=== PATIENT | female | born 1990 | race Caucasian/White ===

== ENCOUNTER → 2018-02-25 | Outpatient (CLI) | payer BC ==
--- NOTE | 2018-02-25 18:02 | EEG ---
ELECTROENCEPHALOGRAM REPORT DATE OF SERVICE: 02/25/2018. REASON FOR TESTING: Syncope. DESCRIPTION OF THE PROCEDURE: This EEG was performed using a 21 channel digital electroencephalograph, following international 10-20 system. DESCRIPTION OF THE RECORDING: From the beginning of the tracing, and with patient's eyes closed, the background rhythm was mostly consisting of 9 Hz alpha frequency in the posterior occipital leads. No obvious asymmetry is seen. Photic stimulation was performed with a good driving response seen. No pathological waves were elicited. Hyperventilation was not performed. Occasional muscle and movement artifacts are seen. The patient remains awake throughout the tracing. No epileptiform discharges were seen. Her EKG lead showed occasional arrhythmia. INTERPRETATION: This awake EEG can be considered within normal limits except her EKG lead showed a regular rate with an irregular rhythm. Clinical correlation is recommended regarding this finding. No epileptiform discharges were seen. The absence of epileptiform discharges does not rule out the diagnosis of epilepsy, therefore clinical correlation is recommended. Thank you for allowing me to participate in the care of your patient. If you have any questions, please feel free to contact me. MMMACKL / IJN: [id number] /
== END | disposition home or self-care (01) ==
LOC: NEUROMAIN 12:53
PROVIDERS: ATTEND Family Medicine
DX: I49.9 Cardiac arrhythmia, unspecified (principal)
CPT/HCPCS: 95816

== ENCOUNTER → 2018-07-13 | Outpatient (CLI) | payer BC | END | disposition home or self-care (01) | LOC: LABWHC1 16:03 | PROVIDERS: ATTEND Obstetrics & Gynecology | DX: Z34.90 Encounter for supervision of normal pregnancy, unspecified, unspecified trimester (principal) | CPT/HCPCS: 36415; 84702 ==

== ENCOUNTER → 2018-07-15 | Outpatient (CLI) | payer BC | END | disposition home or self-care (01) | LOC: LABWHC1 12:37 | PROVIDERS: ATTEND Obstetrics & Gynecology | DX: Z34.90 Encounter for supervision of normal pregnancy, unspecified, unspecified trimester (principal); Z3A.00 Weeks of gestation of pregnancy not specified | CPT/HCPCS: 36415; 84702 ==

== ENCOUNTER 2018-07-20 21:58 | Observation (INO) | payer BC ==
[2018-07-20] MEDS ORDERED: ACETAMINOPHEN TAB 325 MG TAB PO STA (22:22)
[2018-07-20] MEDS ORDERED: SODIUM CHLORIDE 0.9% 1,000 ML IV STA (22:22)
--- NOTE | 2018-07-20 22:23 | ED ---
Female Urogenital HPI - General Source: patient, RN notes reviewed Mode of arrival: ambulatory Limitations: no limitations <Maureen Cintron - Last Filed: 07/21/18 01:31> <Robyn Becerra - Last Filed: 07/21/18 03:26> - General Chief complaint: Urogenital Stated complaint: abdominal pain/8 wks preg Time Seen by Provider: 07/20/18 22:12 - History of Present Illness Initial comments: This is a 27-year-old female who presents to the emergency department with chief complaint of pelvic cramping and low back pain. Patient states that her [employer]ALENT S[employer]ER is Dr. Rose. She states that they have been trending her serum hcG levels as they are not rising appropriately. She states that her last ultrasound was 2 weeks ago and a gestational sac was identified, however no yolk sac was. Based on patient's last menstrual period, she believes she is 8 weeks . She states that this evening she developed low abdominal/ pelvic cramping and pain in her low back that she describes as feeling like contractions. She denies any fevers or chills, and chest pain or shortness of breath, nausea or vomiting, diarrhea. She denies vaginal bleeding or abnormal discharge. (Maureen Cintron) - Related Data Home Medications Medication Instructions Recorded Confirmed Gummy 2 tab PO DAILY 07/20/18 07/20/18 Allergies Allergy/AdvReac Type Severity Reaction Status Date / Time Penicillins Allergy Rash/Hives Verified 07/20/18 22:21 Review of Systems ROS Other: All systems not noted in ROS Statement are negative. <Maureen Cintron - Last Filed: 07/21/18 01:31> ROS Other: All systems not noted in ROS Statement are negative. <Robyn Becerra - Last Filed: 07/21/18 03:26> ROS Statement: Those systems with pertinent positive or pertinent negative responses have been documented in the HPI. Past Medical History Past Medical History: Asthma Additional Past Medical History / Comment(s): Heart arrythmia History of Any Multi-Drug Resistant Organisms: None Reported Past Surgical History: Section Additional Past Surgical History / Comment(s): Bilateral Myringotomy Past Anesthesia/Blood Transfusion Reactions: No Reported Reaction Past Psychological History: Anxiety Smoking Status: Never smoker Past Alcohol Use History: None Reported Past Drug Use History: None Reported - Past Family History Mother History Unknown: Yes Family Medical History: No Reported History <SaidaMaureen Carmen - Last Filed: 07/21/18 01:31> General Exam Limitations: no limitations <SaidaMaureen Carmen - Last Filed: 07/21/18 01:31> <Robyn Becerra - Last Filed: 07/21/18 03:26> - General Exam Comments Initial Comments: General: Awake and alert, well-developed; in mild distress due to pain. Patient is tearful. is at bedside. HEENT: Head atraumatic, normocephalic. Pupils are equal, round and reactive to light. Extraocular movements intact. Oropharynx moist without erythema or exudate. Neck: Supple. Normal ROM. Cardiovascular: Regular rate and rhythm. No murmurs, rubs or gallops. Chest symmetrical. Respiratory: Lungs clear to auscultation bilaterally. No wheezes, rales or rhonchi. Normal respiratory effort with no use of accessory muscles. Abdomen: Soft, non-distended. Generalized tenderness on palpation of hypogastric region. No rigidity or rebound. Voluntary guarding. Normal bowel sounds in all 4 quadrants. Musculoskeletal: Normal ROM, no tenderness bilateral upper and lower extremities. Ambulating normally. Skin: [place], warm and dry without rashes or lesions. Neurological: Alert and oriented x3. CN II-XII grossly intact. Speech is fluent and answers are appropriate. No focal neuro deficits. Psychiatric: Normal mood and affect. No overt signs of depression or anxiety noted. (Maureen Cintron) Vital Signs 07/20/18 07/21/18 07/21/18 22:08 00:10 00:50 Temperature 98.4 F 98.8 F 98.2 F Pulse Rate 91 69 Pulse Rate [ 61 Right Brachial] Respiratory 16 18 16 Rate Blood Pressure 117/76 119/69 Blood Pressure 99/57 [Right Arm] O2 Sat by Pulse 100 99 Oximetry 07/21/18 01:07 Temperature Pulse Rate 88 Pulse Rate [ Right Brachial] Respiratory 18 Rate Blood Pressure Blood Pressure [Right Arm] O2 Sat by Pulse 99 Oximetry Medical Decision Making - Lab Data Result diagrams: 07/20/18 22:50 07/20/18 22:50 - Radiology Data Radiology results: report reviewed <Maureen Cintron - Last Filed: 07/21/18 01:31> - Lab Data Result diagrams: 07/20/18 22:50 07/20/18 22:50 <Robyn Becerra - Last Filed: 07/21/18 03:26> - Medical Decision Making This is a 27-year-old female who presents to the emergency department with chief complaint of lower abdominal cramping. Patient reports that she is approximately 8 weeks based on last menstrual period. She has been following with Dr. Rose for repeat serum hCGs. Patient states that her hCG has not been increasing appropriately. An ultrasound was done a couple weeks ago and patient states that they saw gestational sac but no yolk sac. Patient developed lower abdominal cramping and back pain this evening. Denied any vaginal bleeding. She was concerned for miscarriage or ectopic . CBC and CMP revealed no significant abnormalities. Serum hCG was noted to be 15, 303.3. On review of previous serum hCGs there has not been a greater than 400 increase over the past 7 days. An ultrasound was obtained which revealed no intrauterine . The uterus was empty and a right adnexal mass measuring 3.2 x 3.9 x 2.7 was identified. Findings were discussed with attending physician, Dr. Becerra who was in contact with on-call [employer] S[employer]ER, Dr. Simmons. Patient will be admitted for observation to Dr. Rose. Morning labs of CBC and repeat beta hCG are ordered. Patient's vital signs have been stable and she is in no acute distress. She is in agreement for admission. (Maureen Cintron) Review the patient's chart and discussed patient care with OB on-call Dr. Simmons. She was able to review the patient's outpatient chart from the OB office and recommended admission for repeat CBC and beta hCG and possibility of exploratory laparoscopy for treatment of ectopic . Admission orders placed. (Robyn Becerra) - Lab Data Lab Results 07/20/18 07/20/18 07/20/18 Range/Units 22:45 22:50 22:50 WBC 11.3 H (3.8-10.6) k/uL RBC 4.15 (3.80-5.40) m/uL Hgb 12.6 (11.4-16.0) gm/dL Hct 36.4 (34.0-46.0) % MCV 87.7 (80.0-100.0) fL MCH 30.3 (25.0-35.0) pg MCHC 34.6 (31.0-37.0) g/dL RDW 11.8 (11.5-15.5) % Plt Count 363 (150-450) k/uL Neutrophils % 85 % Lymphocytes % 10 % Monocytes % 4 % Eosinophils % 1 % Basophils % 0 % Neutrophils # 9.6 H (1.3-7.7) k/uL Lymphocytes # 1.1 (1.0-4.8) k/uL Monocytes # 0.4 (0-1.0) k/uL Eosinophils # 0.1 (0-0.7) k/uL Basophils # 0.0 (0-0.2) k/uL Sodium 137 (137-145) mmol/L Potassium 4.3 (3.5-5.1) mmol/L Chloride 104 (98-107) mmol/L Carbon Dioxide 26 (22-30) mmol/L Anion Gap 7 mmol/L BUN 14 (7-17) mg/dL Creatinine 0.54 (0.52-1.04) mg/dL Est GFR (CKD-EPI)AfAm >90 (>60 ml/min/1.73 sqM) Est GFR (CKD-EPI)NonAf >90 (>60 ml/min/1.73 sqM) Glucose 117 H (74-99) mg/dL Calcium 9.6 (8.4-10.2) mg/dL Total Bilirubin 0.2 (0.2-1.3) mg/dL AST 17 (14-36) U/L ALT 18 (9-52) U/L Alkaline Phosphatase 53 (38-126) U/L Total Protein 7.3 (6.3-8.2) g/dL Albumin 4.2 (3.5-5.0) g/dL HCG, Quant 57197.3 mIU/mL Urine Color Yellow Urine Appearance Cloudy H (Clear) Urine pH 5.5 (5.0-8.0) Ur Specific [place] 1.022 (1.001-1.035) Urine Protein Negative (Negative) Urine Glucose (UA) Negative (Negative) Urine Ketones Negative (Negative) Urine Blood Small H (Negative) Urine Nitrite Negative (Negative) Urine Bilirubin Negative (Negative) Urine Urobilinogen <2.0 (<2.0) mg/dL Ur Leukocyte Esterase Negative (Negative) Urine RBC 2 (0-5) /hpf Urine WBC 1 (0-5) /hpf Ur Squamous Epith Cells <1 (0-4) /hpf Calcium Oxalate Crystal Many H (None) /hpf Urine Mucus Few H (None) /hpf - Radiology Data Obstetrical ultrasound impression: Uterus is empty. There is right adnexal mass that measures 3.2 x 3.9 x 3 cm suspicious for ectopic . Small amount of free fluid in the cul-de-sac. Read by Dr. Gonzalez. (Maureen Cintron) Disposition Is patient prescribed a controlled substance at d/c from ED?: No Time of Disposition: 00:30 <Maureen Cintron - Last Filed: 07/21/18 01:31> <Robyn Becerra - Last Filed: 07/21/18 03:26> Clinical Impression: Encounter for assessment for suspected ectopic Disposition: ADMITTED IP TO THIS HOSP Condition: Good
[2018-07-20 23:07] LABS: Basophils % (A) 0 %; Eosinophils # (A) 0.1 k/uL (0-0.7); Eosinophils % (A) 1 %; HCT 36.4 % (34.0-46.0); HGB 12.6 gm/dL (11.4-16.0); Lymphocytes # (A) 1.1 k/uL (1.0-4.8); Lymphocytes % (A) 10 %; MCH 30.3 pg (25.0-35.0); MCHC 34.6 g/dL (31.0-37.0); MCV 87.7 fL (80.0-100.0); Mean Platelet Volume 6.6; Monocytes # (A) 0.4 k/uL (0-1.0); Monocytes % (A) 4 %; Neutrophils # (A) 9.6 k/uL (1.3-7.7); Neutrophils % (A) 85 %; Platelet Count 363 k/uL (150-450); RBC 4.15 m/uL (3.80-5.40); RDW 11.8 % (11.5-15.5); WBC 11.3 k/uL (3.8-10.6)
[2018-07-20 23:12] LABS: Appearance,Urine Cloudy (Clear); Bilirubin,Urine Negative (Negative); Blood,Urine Small (Negative); Calcium Oxalate Crystals,Urine Many /hpf; Color,Urine Yellow; Glucose,Urine (UA) Negative (Negative); Ketones,Urine Negative (Negative); Leukocyte Esterase,Urine Negative (Negative); Mucus,Urine Few /hpf; Nitrite,Urine Negative (Negative); PH, Urine 5.5 (5.0-8.0); Protein,Urine Negative (Negative); RBC,Urine 2 /hpf (0-5); Specific Gravity,Urine 1.022 (1.001-1.035); Squamous Epithelial Cell,Urine <1 /hpf (0-4); Urobilinogen,Urine <2.0 mg/dL (<2.0); WBC,Urine 1 /hpf (0-5)
[2018-07-20 23:16] LABS: ALT 18 U/L (9-52); AST 17 U/L (14-36); Albumin 4.2 g/dL (3.5-5.0); Alkaline Phosphatase 53 U/L (38-126); Anion Gap 7 mmol/L; Blood Urea Nitrogen 14 mg/dL (7-17); Calcium 9.6 mg/dL (8.4-10.2); Carbon Dioxide 26 mmol/L (22-30); Chloride 104 mmol/L (98-107); Glucose 117 mg/dL (74-99); Potassium 4.3 mmol/L (3.5-5.1); Sodium 137 mmol/L (137-145); Total Bilirubin 0.2 mg/dL (0.2-1.3); Total Protein 7.3 g/dL (6.3-8.2)
--- NOTE | 2018-07-20 23:56 | US ---
EXAMINATION TYPE: Transabdominal DATE OF EXAM: 01/13/18 COMPARISON: NONE CLINICAL HISTORY: + preg; cramping. Pain EXAM PERFORMED: Transvaginal (TV) and Transabdominal (TA) EXAM MEASUREMENTS: GESTATIONAL AGE / DATING Physician Established: Not yet established Dates by LMP: (7 weeks/5 days) EDC: 03/03/2019 Dates by First Scan: No previous this is first scan Dates by Current Scan for: Unable to date by today's study MATERNAL ANATOMY Uterus: 7.7 x 3.8 x 4.5 cm Right Ovary: 4.0 x 2.1 x 3.2 Left Ovary: 2.1 x 2.0 x 2.5 Post CDS / Adnexa: Complex right adnexal mass seen 3.9 x 3.2 x 2.7cm suggestive of possible ectopic. Presence of free fluid: Yes Presence of corpus luteal cyst: No Presence of subchorionic bleed: No GESTATION / SURVEY IUP: No IUP seen at this time Beta HcG (if available): Not available at this time Complex right adnexal mass seen 3.9 x 3.2 x 2.7cm. Free fluid seen in cul de sac. IMPRESSION: Uterus is empty. There is right adnexal mass that measures 3.2 x 3.9 x 3 cm suspicious for ectopic pr egnancy. Small amount of free fluid in the cul-de-sac.
[2018-07-20 23:58] LABS: HCG,Quantitative Serum 15303.3 mIU/mL
[2018-07-21] MEDS: SODIUM CHLORIDE 0.9% 1,000 ML IV SCH ×2 (00:51→05:35)
[2018-07-21 01:50] VITALS: BMI 25.5
[2018-07-21 06:41] LABS: Basophils % (A) 0 %; Eosinophils # (A) 0.1 k/uL (0-0.7); Eosinophils % (A) 1 %; HGB 10.9 gm/dL (11.4-16.0); Lymphocytes # (A) 1.9 k/uL (1.0-4.8); Lymphocytes % (A) 27 %; MCH 30.6 pg (25.0-35.0); MCHC 33.9 g/dL (31.0-37.0); MCV 90.1 fL (80.0-100.0); Mean Platelet Volume 6.6; Monocytes # (A) 0.4 k/uL (0-1.0); Monocytes % (A) 5 %; Neutrophils # (A) 4.4 k/uL (1.3-7.7); Neutrophils % (A) 64 %; Platelet Count 324 k/uL (150-450); RBC 3.56 m/uL (3.80-5.40); WBC 6.9 k/uL (3.8-10.6)
--- NOTE | 2018-07-21 07:06 | P.HPOB ---
History of Present Illness H&P Date: 07/21/18 Chief Complaint: Abdominal cramping This is a 27-year-old female 3 para 2 who presented to the emergency room late last night complaining of some abdominal cramping but no vaginal bleeding. She had been seen by Dr. Rose in the office on July 13. At that time she did have a ultrasound that showed possible small sac but no ectopic . At that time her beta hCG level was 14,997. Repeat level II days later was 15,100. At that time he told her she most likely had a blighted ovum and repeat an ultrasound in a few weeks. She was to call if she started having any bleeding. In the emergency room her beta hCG level was 15, 300. Ultrasound did show a right adnexal mass measuring 3.9 x 3.2 cm. Nothing was noted in the uterus. Her hemoglobin was 12.5 and she was hemodynamically stable. She was admitted for observation and repeat labs this morning. She states her pain has not really become any worse since arrival and in fact has gone down a little bit. As long as she is laying still her pain is at a 1-2. When she is up moving it increases to about a 5. She denies any significant nausea or vomiting. Obstetrical history: . History of 2 previous sections. Gynecologic history: No history of sexual transmitted diseases. Review of Systems Constitutional: Denies chills, Denies fever Eyes: denies blurred vision, denies pain Cardiovascular: Denies chest pain, Denies shortness of breath Respiratory: Denies cough Gastrointestinal: Reports abdominal pain (Lower abdominal pain more towards the right side.), Denies nausea, Denies vomiting Genitourinary: Reports , Denies abnormal vaginal bleeding Musculoskeletal: Denies low back pain Integumentary: Denies pruritus, Denies rash Neurological: Denies numbness, Denies weakness Psychiatric: Denies anxiety, Denies depression Past Medical History Past Medical History: Asthma Additional Past Medical History / Comment(s): Heart arrythmia History of Any Multi-Drug Resistant Organisms: None Reported Past Surgical History: Section (Times 2) Additional Past Surgical History / Comment(s): Bilateral Myringotomy Past Anesthesia/Blood Transfusion Reactions: No Reported Reaction Past Psychological History: Anxiety Smoking Status: Never smoker Past Alcohol Use History: None Reported Past Drug Use History: None Reported - Past Family History Mother History Unknown: Yes Family Medical History: No Reported History Medications and Allergies Home Medications Medication Instructions Recorded Confirmed Type Gummy 2 tab PO DAILY 07/20/18 07/20/18 History Allergies Allergy/AdvReac Type Severity Reaction Status Date / Time Penicillins Allergy Rash/Hives Verified 07/20/18 22:21 Exam Osteopathic Statement: *. No significant issues noted on an osteopathic structural exam other than those noted in the History and Physical/Consult. Vital Signs Temp Pulse Pulse Resp BP BP Pulse Ox 07/21/18 01:07 88 18 99 07/21/18 00:50 98.2 F 61 16 99/57 07/21/18 00:10 98.8 F 69 18 119/69 99 07/20/18 22:08 98.4 F 91 16 117/76 100 Intake and Output 07/20/18 07/20/18 07/21/18 14:59 22:59 06:59 Intake Total 1500 Balance 1500 Intake: Amount of Fluid Infused ( 1000 ml) Intake, IV Titration 500 Amount Sodium Chloride 0.9% 1, 500 000 ml @ 100 mls/hr IV . Q[facility]H [facility] Rx#:[id number] Other: Voiding Method Toilet Weight 59.421 kg 59.421 kg Gen.: Well-developed well-nourished white female in no acute distress HEENT: Within normal limits Heart: Regular rate and rhythm Lungs: Clear to auscultation bilaterally Abdomen: Soft, no rebound, mild tenderness in the lower abdomen more towards the right side. Pelvic exam: Uterus is slightly enlarged and tender to palpation. Minimal tenderness is noted in the left adnexa. Mild to moderate tenderness is noted in the right adnexa with no specific masses palpated. Extremities: Negative Homans Results Result Diagrams: 07/21/18 06:04 07/20/18 22:50 Abnormal Lab Results - Last 24 Hours (Table) 07/20/18 07/20/18 07/20/18 Range/Units 22:45 22:50 22:50 WBC 11.3 H (3.8-10.6) k/uL RBC (3.80-5.40) m/uL Hgb (11.4-16.0) gm/dL Hct (34.0-46.0) % Neutrophils # 9.6 H (1.3-7.7) k/uL Glucose 117 H (74-99) mg/dL Urine Appearance Cloudy H (Clear) Urine Blood Small H (Negative) Calcium Oxalate Crystal Many H (None) /hpf Urine Mucus Few H (None) /hpf 07/21/18 Range/Units 06:04 WBC (3.8-10.6) k/uL RBC 3.56 L (3.80-5.40) m/uL Hgb 10.9 L (11.4-16.0) gm/dL Hct 32.0 L (34.0-46.0) % Neutrophils # (1.3-7.7) k/uL Glucose (74-99) mg/dL Urine Appearance (Clear) Urine Blood (Negative) Calcium Oxalate Crystal (None) /hpf Urine Mucus (None) /hpf Assessment and Plan (1) Encounter for assessment for suspected ectopic Current Visit: Yes Status: Acute Code(s): Z32.00 - ENCOUNTER FOR TEST, RESULT UNKNOWN SNOMED Code(s): 733985031 Plan: I have discussed laparoscopy with possible laparotomy and possible salpingectomy , possible oophorectomy with the patient in detail. She has signed consent forms. I will discuss this case with Dr. Rose shortly and have booked her for surgery this morning. I have discussed the risks, benefits, and alternative therapies for the above- mentioned procedure and for both sedation/anesthesia as well as necessary blood products administration, if indicated, as they pertain to this patient. The patient has indicated her understanding and acceptance of the risks and procedures discussed.
[2018-07-21] MEDS ORDERED: IV FLUID CONTINUATION 1,000 ML IV ONE (08:03)
[2018-07-21] MEDS ORDERED: ONDANSETRON 4 MG/2 ML VIAL IVP ONE (08:11)
[2018-07-21] MEDS ORDERED: DEXAMETHASONE SOD PHOS (MDV) 100 MG/10 ML VIAL IVP ONE (08:12)
[2018-07-21] MEDS ORDERED: KETOROLAC 30 MG/ML 1 ML VIAL ONE (09:06)
[2018-07-21] MEDS ORDERED: GLYCOPYRROLATE 0.2 MG/ML 2 ML VIAL ONE (09:06)
[2018-07-21] MEDS ORDERED: NEOSTIGMINE 1 MG/ML 10 ML VIAL ONE (09:06)
[2018-07-21] MEDS ORDERED: ACETAMINOPHEN IV (For NPO) 1,000 MG/100 ML VIAL ONE (09:06)
[2018-07-21] MEDS ORDERED: PROPOFOL 10 MG/ML 20 ML VIAL IV ONE (09:06)
[2018-07-21] MEDS ORDERED: ROCURONIUM BROMIDE 10 MG/ML 10 ML VIAL IV ONE (09:06)
[2018-07-21] MEDS ORDERED: SUCCINYLCHOLINE CHLORIDE 100 MG/5 ML SYR IV ONE (09:06)
[2018-07-21] MEDS ORDERED: fentaNYL (PF) 50 MCG/ML 2 ML AMP ONE (09:06)
[2018-07-21] MEDS ORDERED: MEPERIDINE 50 MG/ML SYRINGE ONE (09:06)
[2018-07-21] MEDS ORDERED: LIDOCAINE 1% INJ 10MG/ML (20 ML MDV) ONE (09:06)
[2018-07-21] MEDS ORDERED: ROPIVACAINE 5 MG/ML 30 ML VIAL MISCELLANE ONE (09:45)
[2018-07-21] MEDS ORDERED: LACTATED RINGERS 1,000 ML IV ONE (09:46)
--- NOTE | 2018-07-21 10:09 | P.OP ---
Date of Procedure: 07/21/18 Preoperative Diagnosis: Adnexal mass with pain suspect ectopic Postoperative Diagnosis: Same with ectopic and right fallopian tube Procedure(s) Performed: Diagnostic laparoscopy with right partial salpingectomy Anesthesia: KACY Surgeon: Ken Rose Ink Technician #1: Heather Simmons Pathology: other (Right fallopian tube and ectopic) Condition: stable Disposition: floor Operative Findings: Large ectopic right fallopian tube. Fallopian tube distorted with significant hemorrhage believed to be sitting underneath Description of Procedure: Patient was taken to the operating suite where a general anesthetic was found be adequate. She was prepped and draped in normal sterile fashion placed in dorsal lithotomy position. Initially a speculum was inserted into the vagina and the anterior lip of the cervix identified and grasped with a single-tooth tenaculum. Uterus is then sounded cervix dilated and a uterine manipulator was inserted without difficulty. Red rubber catheter was then used to drain the bladder of urine. Once this was accomplished other instruments removed closer changed and attention was turned to abdominal portion procedure where 2 mL of local anesthetic was injected periumbilically. Through this injected anesthetic a 5 mm skin incision was made. Through this incision under direct visualization with an optical trocar and sleeve the camera was inserted. Once peritoneal placement was assured gas was allowed to fully insufflate the abdomen and patient was placed in steep Trendelenburg position. Immediately we were able to visualize the ectopic , right side by elevating the uterus. Therefore, a 10 mm skin incision was made 10 cm lateral to the umbilicus on the same line via transillumination and then direct visualization. Third port and sleeve were placed through 5 mm skin incision in the section scar in the midline. Uterus was then elevated and tipped to the left- hand side fallopian tube and ectopic were identified grasped with a grasper and using a 5 mm LigaSure we were able to create a partial salpingectomy across the tissues. Discussion on salpingectomy was made however, due to the extensive distortion of tube and size of the ectopic and it was felt the to would most likely have another ectopic and therefore was not left behind. Left fallopian tube and ovary however did appear normal. Uterus also appeared normal. Once fallopian tube and ectopic were removed there placed in the cul-de-sac and then the pelvis was suction irrigated. Once this was completed a 10 mm extraction bag was inserted ectopic and tube were placed in the extraction bag and removed. This tissue was sent to pathology for evaluation. The 10 port was replaced and inspection of the incision line and irrigation of any remaining blood was then completed. With no bleeding noted on the incision line from the ectopic, instruments were removed and gas was allowed to expel from the abdomen. 5 deep breaths were provided during this process. Ports were then removed. 4-0 Vicryl was then used to close incision subcuticularly. One 0 Vicryl suture was placed in the 1012 port subcuticularly to help reapproximate the skin. The remaining 8 mL of local anesthetic was then injected around these incisions. Instruments removed from the vagina. Patient was then taken to the recovery room in stable and satisfactory condition.
[2018-07-21] MEDS: HYDROcodone/APAP 7.5-325MG 1 EACH TAB PO PRN ×2 (13:10→19:29)
[2018-07-21] MEDS: KETOROLAC 30 MG/ML 1 ML VIAL IVP SCH ×2 (16:55→19:33)
[2018-07-21] MEDS: IBUPROFEN 600 MG TAB PO PRN (23:34)
[2018-07-22] MEDS: IBUPROFEN 600 MG TAB PO PRN (08:14)
--- NOTE | 2018-07-22 08:55 | P.DS ---
Providers Date of admission: 07/21/18 00:25 Expected date of discharge: 07/22/18 Attending physician: Ken Rose Primary care physician: Maciej Guzman Hospital Course: Karla is doing very well postop day 1. She is ambulating, voiding, and she is tolerating her diet. She has passed flatus. Vital signs are stable and afebrile. Heart regular, lungs clear, extremities without pain. Abdomen is soft and nontender with bowel sounds are noted. Assessment postop day 1 from a laparoscopic right partial salpingectomy for ectopic . We are expecting her to follow up with me in approximately 1 week. Discharge instructions are thoroughly reviewed and all questions are answered for her prior to discharge. Prescription for Motrin has been provided to her pharmacy. All the questions are answered for her at this time. Plan - Discharge Summary New Discharge Prescriptions: New Ibuprofen [Motrin] 600 mg PO Q6HR PRN #30 tab PRN Reason: Pain No Action Gummy 2 tab PO DAILY Discharge Medication List Gummy 2 tab PO DAILY 07/20/18 [History] Ibuprofen [Motrin] 600 mg PO Q6HR PRN #30 tab 07/22/18 [Rx] Follow up Appointment(s)/Referral(s): Maciej Guzman MD [Primary Care Provider] - 1-2 days Ken Rose DO [Doctor of Osteopathic Medicine] - 1 Week Activity/Diet/Wound Care/Special Instructions: No heavy lifting, limit stairs and driving, and pelvic rest. If any high temperatures, heavy bleeding, or severe pain call my office Discharge Disposition: HOME SELF-CARE
[2018-07-22 09:30] VITALS: BP 109/69; PULSE 64; RESP 18; TEMP 98.6
== END 2018-07-22 11:00 | disposition home or self-care (01) ==
LOC: EC 21:58 → 4FBP 07-21 00:25
PROVIDERS: ADMIT Obstetrics & Gynecology; ATTEND Obstetrics & Gynecology
DX: O00.101 Right tubal pregnancy without intrauterine pregnancy (principal); Z3A.08 8 weeks gestation of pregnancy; Z88.0 Allergy status to penicillin; O34.219 Maternal care for unspecified type scar from previous cesarean delivery
CPT/HCPCS: 59151; 99284; 96360 ×2; 96361 ×5; 36415; 88305; 80053; 85025 ×2; 81001; 84702 ×2; 76801; 76817; G0378 ×2; J2710; J2175; J2405; J2001; J3010; J1885; J1100; J2795; J0131; J0330; J2704

== ENCOUNTER 2019-01-26 12:24 | Emergency (ER) | payer BC ==
[2019-01-26 12:37] VITALS: TEMP 98.3
[2019-01-26 13:44] LABS: Basophils % (A) 0 %; Eosinophils # (A) 0.2 k/uL (0-0.7); Eosinophils % (A) 2 %; HCT 33.5 % (34.0-46.0); Lymphocytes # (A) 1.6 k/uL (1.0-4.8); Lymphocytes % (A) 15 %; MCHC 32.9 g/dL (31.0-37.0); MCV 91.4 fL (80.0-100.0); Mean Platelet Volume 6.5; Monocytes # (A) 0.6 k/uL (0-1.0); Monocytes % (A) 6 %; Neutrophils # (A) 8.2 k/uL (1.3-7.7); Neutrophils % (A) 77 %; Platelet Count 398 k/uL (150-450); RBC 3.66 m/uL (3.80-5.40); RDW 13.2 % (11.5-15.5); WBC 10.7 k/uL (3.8-10.6)
[2019-01-26 13:57] LABS: ALT 19 U/L (9-52); AST 19 U/L (14-36); Albumin 3.5 g/dL (3.5-5.0); Alkaline Phosphatase 73 U/L (38-126); Anion Gap 5 mmol/L; Blood Urea Nitrogen 7 mg/dL (7-17); Calcium 10.1 mg/dL (8.4-10.2); Carbon Dioxide 24 mmol/L (22-30); Chloride 107 mmol/L (98-107); Glucose 71 mg/dL (74-99); Potassium 4.3 mmol/L (3.5-5.1); Sodium 136 mmol/L (137-145); Total Bilirubin 0.3 mg/dL (0.2-1.3); Total Protein 6.5 g/dL (6.3-8.2)
--- NOTE | 2019-01-26 14:00 | ED ---
General Adult HPI - General Chief complaint: Shortness of Breath Stated complaint: possible PE, 22 weeks Time Seen by Provider: 01/26/19 13:11 Source: patient, RN notes reviewed Mode of arrival: wheelchair Limitations: no limitations - History of Present Illness Initial comments: 28-year-old female presents emergency Department with chief complaint of shortness of breath. Patient states she has exertional shortness of breath the last 1 week. Patient denies any cough, chest congestion. She does have mild runny. States it's been ongoing she's had this with her . Patient states she color will be given Dr. Chino's office to advise about emergency department to rule out PE. Patient states she occasionally has centralized juan st pain. No history of PE or DVT. Patient denies any leg pain, leg swelling. Patient states her grandparents have clotting disorders though she states that she has no known clotting disorders herself. Patient is A1. - Related Data Home Medications Medication Instructions Recorded Confirmed Mwa-Wlqn-Jcjhu Acid 1 cap PO DAILY 01/26/19 01/26/19 [-U Capsule (formulary)] Allergies Allergy/AdvReac Type Severity Reaction Status Date / Time Penicillins Allergy Rash/Hives Verified 01/26/19 13:04 Review of Systems ROS Statement: Those systems with pertinent positive or pertinent negative responses have been documented in the HPI. ROS Other: All systems not noted in ROS Statement are negative. Past Medical History Past Medical History: Asthma Additional Past Medical History / Comment(s): Heart arrythmia History of Any Multi-Drug Resistant Organisms: None Reported Past Surgical History: Section Additional Past Surgical History / Comment(s): Bilateral Myringotomy Past Anesthesia/Blood Transfusion Reactions: No Reported Reaction Past Psychological History: Anxiety Smoking Status: Never smoker Past Alcohol Use History: None Reported Past Drug Use History: None Reported - Past Family History Mother History Unknown: Yes Family Medical History: No Reported History General Exam Limitations: no limitations General appearance: alert, in no apparent distress Head exam: Present: atraumatic, normocephalic, normal inspection Eye exam: Present: normal appearance, PERRL, EOMI. Absent: scleral icterus, conjunctival injection, periorbital swelling ENT exam: Present: normal exam, normal oropharynx, mucous membranes moist, TM's normal bilaterally Neck exam: Present: normal inspection, full ROM. Absent: tenderness, meningismus, lymphadenopathy Respiratory exam: Present: normal lung sounds bilaterally. Absent: respiratory distress, wheezes, rales, rhonchi, stridor Cardiovascular Exam: Present: regular rate, normal rhythm, normal heart sounds. Absent: systolic murmur, diastolic murmur, rubs, gallop, clicks GI/Abdominal exam: Present: soft, normal bowel sounds. Absent: distended, tenderness, guarding, rebound, rigid Extremities exam: Absent: pedal edema, calf tenderness Neurological exam: Present: alert Skin exam: Present: warm, dry, intact, normal color. Absent: rash Course Vital Signs 01/26/19 12:32 Temperature 98.3 F Pulse Rate 83 Respiratory 20 Rate Blood Pressure 106/72 O2 Sat by Pulse 100 Oximetry EKG Findings - EKG Comments: EKG Findings:: EKG performed at 13:36 show sinus rhythm with a rate of 65 GA 160 QRS 81 QT status QTC 428/445 there is noted inverted T-wave in V3 with Q waves. Medical Decision Making - Medical Decision Making 28-year-old female presented for dyspnea associated with . Patient sent to rule out PE. Patient does have some EKG changes concerning for PE, d- dimer was elevated though this is likely related to her CT was obtained after long discussion with patient given current symptoms and concern and we did discuss exposure to radiation she agrees to CT CT is negative for PE. Patient will be discharged return parameters were discussed. - Lab Data Result diagrams: 01/26/19 13:30 01/26/19 13:30 Lab Results 01/26/19 01/26/19 01/26/19 Range/Units 13:30 13:30 13:30 WBC 10.7 H (3.8-10.6) k/uL RBC 3.66 L (3.80-5.40) m/uL Hgb 11.0 L (11.4-16.0) gm/dL Hct 33.5 L (34.0-46.0) % MCV 91.4 (80.0-100.0) fL MCH 30.0 (25.0-35.0) pg MCHC 32.9 (31.0-37.0) g/dL RDW 13.2 (11.5-15.5) % Plt Count 398 (150-450) k/uL Neutrophils % 77 % Lymphocytes % 15 % Monocytes % 6 % Eosinophils % 2 % Basophils % 0 % Neutrophils # 8.2 H (1.3-7.7) k/uL Lymphocytes # 1.6 (1.0-4.8) k/uL Monocytes # 0.6 (0-1.0) k/uL Eosinophils # 0.2 (0-0.7) k/uL Basophils # 0.0 (0-0.2) k/uL D-Dimer (<0.60) mg/L FEU Sodium 136 L (137-145) mmol/L Potassium 4.3 (3.5-5.1) mmol/L Chloride 107 (98-107) mmol/L Carbon Dioxide 24 (22-30) mmol/L Anion Gap 5 mmol/L BUN 7 (7-17) mg/dL Creatinine 0.40 L (0.52-1.04) mg/dL Est GFR (CKD-EPI)AfAm >90 (>60 ml/min/1.73 sqM) Est GFR (CKD-EPI)NonAf >90 (>60 ml/min/1.73 sqM) Glucose 71 L (74-99) mg/dL Calcium 10.1 (8.4-10.2) mg/dL Total Bilirubin 0.3 (0.2-1.3) mg/dL AST 19 (14-36) U/L ALT 19 (9-52) U/L Alkaline Phosphatase 73 (38-126) U/L Troponin I <0.012 (0.000-0.034) ng/mL Total Protein 6.5 (6.3-8.2) g/dL Albumin 3.5 (3.5-5.0) g/dL 01/26/19 Range/Units 13:50 WBC (3.8-10.6) k/uL RBC (3.80-5.40) m/uL Hgb (11.4-16.0) gm/dL Hct (34.0-46.0) % MCV (80.0-100.0) fL MCH (25.0-35.0) pg MCHC (31.0-37.0) g/dL RDW (11.5-15.5) % Plt Count (150-450) k/uL Neutrophils % % Lymphocytes % % Monocytes % % Eosinophils % % Basophils % % Neutrophils # (1.3-7.7) k/uL Lymphocytes # (1.0-4.8) k/uL Monocytes # (0-1.0) k/uL Eosinophils # (0-0.7) k/uL Basophils # (0-0.2) k/uL D-Dimer 0.84 H (<0.60) mg/L FEU Sodium (137-145) mmol/L Potassium (3.5-5.1) mmol/L Chloride (98-107) mmol/L Carbon Dioxide (22-30) mmol/L Anion Gap mmol/L BUN (7-17) mg/dL Creatinine (0.52-1.04) mg/dL Est GFR (CKD-EPI)AfAm (>60 ml/min/1.73 sqM) Est GFR (CKD-EPI)NonAf (>60 ml/min/1.73 sqM) Glucose (74-99) mg/dL Calcium (8.4-10.2) mg/dL Total Bilirubin (0.2-1.3) mg/dL AST (14-36) U/L ALT (9-52) U/L Alkaline Phosphatase (38-126) U/L Troponin I (0.000-0.034) ng/mL Total Protein (6.3-8.2) g/dL Albumin (3.5-5.0) g/dL Disposition Clinical Impression: Dyspnea Disposition: HOME SELF-CARE Condition: Stable Instructions (If sedation given, give patient instructions): Dyspnea (ED) Additional Instructions: Please return to the Emergency Department if symptoms worsen or any other concerns. Is patient prescribed a controlled substance at d/c from ED?: No Referrals: Maciej Guzman MD [Primary Care Provider] - 1-2 days Time of Disposition: 16:23
--- NOTE | 2019-01-26 14:42 | US ---
EXAMINATION TYPE: US venous doppler duplex LE DATE OF EXAM: 01/26/2019 2:36 PM COMPARISON: NONE CLINICAL HISTORY: Pain. SOB, patient states no leg pain or swelling SIDE PERFORMED: Bilateral TECHNIQUE: The lower extremity deep venous system is examined utilizing real time linear array sonog chris with graded compression, doppler sonography and color-flow sonography. VESSELS IMAGED: External Iliac Vein (EIV) Common Femoral Vein Deep Femoral Vein Greater Saphenous Vein * Femoral Vein Popliteal Vein Small Saphenous Vein * Proximal Calf Veins (* superficial vessels) Grayscale, color doppler, spectral doppler imaging performed of the deep veins of the lower extremiti es. There is normal flow, compressibility, vascular waveforms. Right Leg: Appears negative for DVT Left Leg: Appears negative for DVT IMPRESSION: No sonographic evidence of deep venous thrombosis within the bilateral lower extremities .
--- NOTE | 2019-01-26 16:17 | CT ---
EXAMINATION TYPE: CT angio chest DATE OF EXAM: 01/26/2019 COMPARISON: NONE HISTORY: SOB X1 MONTH CT DLP: 315.6 mGycm. Automated Exposure Control for Dose Reduction was Utilized. CONTRAST: CTA scan of the thorax is performed with IV Contrast, patient injected with 100 mL of Isovue 370, pul monary embolism protocol. MIP Images are created on CT scanner and reviewed. FINDINGS: LUNGS: The lungs are grossly clear, there is no concerning parenchymal mass or nodule identified. T here is no pleural effusion or pneumothorax seen. The tracheobronchial tree is patent. MEDIASTINUM: There is suboptimal enhancement of the pulmonary artery and its branches, there is no CT evidence for pulmonary embolism. There are no greater than 1 cm hilar or mediastinal lymph nodes. No cardiomegaly or pericardial effusion is seen. Strand-like probable residual thymic tissue seen in the superior mediastinum. No significant coronary calcifications are seen. OTHER: Very small hiatal hernia is present. Upper abdomen is limited by extensive spray artifact. Oss eous structures are grossly intact. IMPRESSION: 1. No evidence of pulmonary embolus. 2. Very small hiatal hernia.
[2019-01-26 17:10] VITALS: BP 113/78; PULSE 82; RESP 16
== END 2019-01-26 17:05 | disposition home or self-care (01) ==
LOC: EC 12:24
DX: O99.89 Other specified diseases and conditions complicating pregnancy, childbirth and the puerperium (principal); R06.00 Dyspnea, unspecified; Z87.09 Personal history of other diseases of the respiratory system; Z88.0 Allergy status to penicillin; Z3A.22 22 weeks gestation of pregnancy
CPT/HCPCS: 36415; 93005; 85379; 80053; 84484; 85025; 93970; 71275; 99285; Q9967

== ENCOUNTER 2019-05-25 05:44 | Inpatient (IN) | payer BC, OTHER ==
[2019-05-25] MEDS ORDERED: LACTATED RINGERS 1,000 ML IV ONE (05:55)
[2019-05-25] MEDS ORDERED: CITRIC ACID-SODIUM CITRATE 15 ML CUP PO ONE (05:55)
[2019-05-25 06:09] VITALS: BMI 33.5
[2019-05-25] MEDS: LACTATED RINGERS 1,000 ML IV SCH (06:12)
[2019-05-25 06:37] LABS: Basophils % (A) 0 %; Eosinophils # (A) 0.2 k/uL (0-0.7); Eosinophils % (A) 2 %; HCT 33.3 % (34.0-46.0); HGB 10.8 gm/dL (11.4-16.0); Lymphocytes # (A) 1.7 k/uL (1.0-4.8); Lymphocytes % (A) 18 %; MCH 28.4 pg (25.0-35.0); MCHC 32.4 g/dL (31.0-37.0); MCV 87.6 fL (80.0-100.0); Mean Platelet Volume 7.3; Monocytes # (A) 0.5 k/uL (0-1.0); Monocytes % (A) 5 %; Neutrophils # (A) 6.5 k/uL (1.3-7.7); Neutrophils % (A) 72 %; Platelet Count 352 k/uL (150-450); RDW 15.1 % (11.5-15.5); WBC 9.1 k/uL (3.8-10.6)
[2019-05-25] MEDS ORDERED: MORPHINE SULFATE (PF) 0.3 MG/0.3 ML SYR ONE (07:48)
[2019-05-25] MEDS ORDERED: OXYTOCIN 10 UNIT/ML 1 ML VIAL ONE (07:48)
[2019-05-25] MEDS ORDERED: KETOROLAC 30 MG/ML 1 ML VIAL ONE (07:48)
[2019-05-25] MEDS ORDERED: ONDANSETRON 4 MG/2 ML VIAL ONE (07:48)
[2019-05-25] MEDS ORDERED: NALBUPHINE 10 MG/ML (1 ML AMP) ONE (07:48)
[2019-05-25] MEDS ORDERED: diphenhydrAMINE 50 MG/ML 1 ML VIAL IVP PRN ×3 (08:32→09:20)
[2019-05-25] MEDS ORDERED: METOCLOPRAMIDE 5 MG/ML 2 ML VIAL IVP PRN (08:32)
[2019-05-25] MEDS ORDERED: NALOXONE 0.4 MG/ML 1 ML VIAL IV PRN ×2 (08:32→09:20)
[2019-05-25] MEDS ORDERED: ZOLPIDEM 5 MG TAB PO PRN (08:32)
[2019-05-25] MEDS ORDERED: diphenhydrAMINE 25 MG CAP PO PRN (08:32)
[2019-05-25] MEDS ORDERED: diphenhydrAMINE 50 MG CAP PO PRN (08:32)
[2019-05-25] MEDS ORDERED: ONDANSETRON 4 MG/2 ML VIAL IVP PRN (08:32)
[2019-05-25] MEDS ORDERED: HYDROcodone/APAP 7.5-325MG 1 EACH TAB PO PRN (08:32)
--- NOTE | 2019-05-25 08:35 | P.HPOB ---
History of Present Illness H&P Date: 05/25/19 Chief Complaint: Intrauterine at term: Prior sections: Family planning Karla is a 28-year-old G3 for P2 at 39 weeks gestation who is here for repeat section and tubal occlusion. Prior history includes an ectopic for which she lost her right fallopian tube we're planning to type left fallopian tube today. Her course otherwise was unremarkable and she is feeling well at this time. Pertinent labs include O+ blood type Rh and it was negative, rubella was immune, hepatitis B surface antigen RPR and group B strep were all negative. A category 1 tracing is noted this morning. Risks/benefits/alternatives were reviewed with patient in detail and all questions were answered for her prior to proceeding to the operative room. Past Medical History Past Medical History: Asthma Additional Past Medical History / Comment(s): hx Heart arrythmia, Asthma was from childhood History of Any Multi-Drug Resistant Organisms: None Reported Past Surgical History: Section Additional Past Surgical History / Comment(s): right salpingectomy, Bilateral Myringotomy Past Anesthesia/Blood Transfusion Reactions: No Reported Reaction Past Psychological History: No Psychological Hx Reported Smoking Status: Never smoker Past Alcohol Use History: None Reported Past Drug Use History: None Reported - Past Family History Mother History Unknown: Yes Family Medical History: No Reported History Medications and Allergies Home Medications Medication Instructions Recorded Confirmed Type Xag-Cfst-Mkmdv Acid 1 cap PO DAILY 01/26/19 05/25/19 History [-U Capsule (formulary)] Allergies Allergy/AdvReac Type Severity Reaction Status Date / Time Penicillins Allergy Rash/Hives Verified 05/25/19 05:55 Exam Osteopathic Statement: *. No significant issues noted on an osteopathic structural exam other than those noted in the History and Physical/Consult. Vital Signs Temp Pulse Resp BP 05/25/19 06:03 97.1 F L 117 H 16 124/88 Intake and Output 05/24/19 05/25/19 05/25/19 22:59 06:59 14:59 Other: # Voids 1 Weight 78.018 kg - OBG Physical Exam Breast: both: normal (no masses) Abdomen: bowel sounds normal, no diffuse tenderness, no bruit present, no guarding noted, no hepatomegaly, no splenomegaly, no mass Vulva: both: normal Vagina: normal moisture, no discharge Cervix: no lesion, no discharge Uterus: normal size, normal contour Adnexa: both: normal Anus/Rectum: normal perianal skin, no rectal mass, no hemorrhoids, heme negative Results Result Diagrams: 05/25/19 06:00 Abnormal Lab Results - Last 24 Hours (Table) 05/25/19 Range/Units 06:00 Hgb 10.8 L (11.4-16.0) gm/dL Hct 33.3 L (34.0-46.0) %
--- NOTE | 2019-05-25 08:37 | P.OP ---
Date of Procedure: 05/25/19 Preoperative Diagnosis: Intrauterine at term: Prior sections: Family planning Postoperative Diagnosis: Same Procedure(s) Performed: Repeat low transverse section with partial salpingectomy of the left fallopian tube Anesthesia: spinal Surgeon: Ken Rose [employer]1: Ector Bolivar Estimated Blood Loss (ml): 600 IV fluids (ml): 1,000 Urine output (ml): 200 Pathology: none sent Condition: stable Disposition: floor Operative Findings: Male scores of 8 and 10 at one and 5 minutes and a weight of 7 lbs. 14 oz. nuchal cord 1 easily reduced Description of Procedure: Patient was taken to the operating suite where a spinal anesthetic was found be adequate. She was prepped and draped in normal sterile fashion and placed in the dorsal supine position with leftward tilt. Initially a Pfannenstiel skin incision was made and this incision was then carried through to underlying layer of the fascia with the second knife. Fascia was then nicked in the midline and this opening was extended laterally with Arana scissors. Superior and inferior aspect of this incision were then grasped tented up and bluntly and sharply dissected off the rectus muscles. Rectus muscles were then divided the midline and sharp dissection through the peritoneum was done. This opening was then extended superiorly and inferiorly with good visualization of both bowel bladder. Bladder blade was then placed and the bladder flap identified. It was entered with Metzenbaum scissors carried across face the uterus with metastases scissors and bluntly dissected out of the operative field. Knife was then used to incise uterus this incision was fully developed with hemostat and then extended bluntly. Head was then H medically delivered and nuchal cord 1 was easily reduced. Mouth nares were then bulb suctioned and following delivery of the baby the umbilical cord was clamped cut usual fashion. Nursery personnel was present and assumed care. Placenta was then delivered intact and Pitocin was added to the IV. Uterus was then exteriorized cleared of clots and debris and closed in 1 layer with 0 Vicryl suture. Once excellent hemostasis was o btained blood and debris was suctioned from the posterior cul-de-sac and attention was turned to the left fallopian tube. Hemostat was used to grasp the tube 2 cm from uterine cornu and a window was created in the mesosalpinx. 2 proximal and 2 distal 2-0 silk sutures were then placed and intervening segment excised and tips cauterized. Inspection the incision line reveals no areas of bleeding or concerns therefore and uterus was reinserted into the abdomen and peritoneal layer was reapproximated with 0 Vicryl suture. Fascial layer was then closed with 0 Vicryl suture in 1 layer of 3-0 Vicryl was placed in the deep subcuticular tissues. Skin was then closed with 3-0 Vicryl subcuticularly and patient was taken to the recovery room in stable and satisfactory condition.
[2019-05-25] MEDS ORDERED: LACTATED RINGERS 1,000 ML IV SCH (08:45)
[2019-05-25] MEDS ORDERED: NALBUPHINE 10 MG/ML (1 ML AMP) IV PRN (09:20)
[2019-05-25] MEDS ORDERED: HYDROmorphone 0.5 MG/0.5 ML SYRINGE IVP PRN (09:20)
[2019-05-25] MEDS ORDERED: HYDROmorphone 1 MG/ML 1 ML SYRINGE IVP PRN (09:27)
[2019-05-25] MEDS: SENNOSIDES-DOCUSATE SODIUM 1 EACH TAB PO SCH (19:55)
[2019-05-25] MEDS: KETOROLAC 30 MG/ML 1 ML VIAL IVP PRN (19:56)
[2019-05-26] MEDS: KETOROLAC 30 MG/ML 1 ML VIAL IVP PRN ×2 (01:56→08:13)
[2019-05-26] MEDS: SENNOSIDES-DOCUSATE SODIUM 1 EACH TAB PO SCH ×2 (08:12→20:06)
[2019-05-26 08:32] LABS: Basophils % (A) 0 %; Eosinophils # (A) 0.2 k/uL (0-0.7); Eosinophils % (A) 2 %; HCT 33.3 % (34.0-46.0); HGB 10.6 gm/dL (11.4-16.0); Lymphocytes # (A) 1.1 k/uL (1.0-4.8); Lymphocytes % (A) 13 %; MCH 28.5 pg (25.0-35.0); MCHC 31.8 g/dL (31.0-37.0); MCV 89.6 fL (80.0-100.0); Mean Platelet Volume 7.6; Monocytes # (A) 0.5 k/uL (0-1.0); Monocytes % (A) 5 %; Neutrophils # (A) 6.6 k/uL (1.3-7.7); Neutrophils % (A) 78 %; Platelet Count 311 k/uL (150-450); RBC 3.71 m/uL (3.80-5.40); RDW 15.9 % (11.5-15.5); WBC 8.4 k/uL (3.8-10.6)
--- NOTE | 2019-05-26 09:01 | P.PN ---
Progress Note - Text Progress Note Date: 05/26/19 Postoperative day 1 status post section under spinal anesthesia, and intrathecal morphine given for postoperative analgesia, patient doing well, there is no anesthesia related complications, Patient had no headache, vital signs stable , Assessment and plan= postop day 1 status post , doing well there is no anesthesia related complication.
--- NOTE | 2019-05-26 09:39 | P.PNOBGPC ---
Subjective - Subjective Principal diagnosis: Postop day 1 Interval history: Karla is doing very well postop day 1. She is involuting, voiding and tolerating her diet. She voices no complaints vital signs are stable and afebrile. Heart regular, lungs clear, extremities without pain. Abdomen is soft incision is clean dry and intact. Patient reports: Reports appetite normal, Reports voiding normally, Reports pain well controlled, Reports ambulating normally : doing well Objective - Vital Signs Latest vital signs: Vital Signs Temp Pulse Resp BP Pulse Ox 05/26/19 06:00 99 05/26/19 04:00 97.5 F L 58 L 16 113/61 05/26/19 02:00 99 05/26/19 00:00 97.8 F 79 16 112/75 99 05/25/19 22:00 99 05/25/19 21:58 148/83 05/25/19 20:00 97.5 F L 64 16 144/85 100 05/25/19 18:00 18 05/25/19 15:48 57 L 18 108/73 05/25/19 15:47 98 F 57 L 18 108/73 05/25/19 14:20 97 05/25/19 14:00 18 05/25/19 12:01 97.2 F L 88 16 112/73 05/25/19 12:00 97.2 F L 88 16 112/73 05/25/19 10:44 50 L 16 108/73 05/25/19 10:20 67 18 134/61 98 05/25/19 10:17 97.8 F 67 18 134/61 05/25/19 09:47 54 L 18 108/70 Intake and Output 05/25/19 05/26/19 05/26/19 22:59 06:59 14:59 Output Total 4350 900 Balance -4350 -900 Output: Urine 4350 900 Uretheral (Martinez) 2000 Other: # Voids 2 2 - Exam Lungs: bilateral: normal Chest: Normal S1, Normal S2 Extremities: Present: normal Abdomen: Present: normal appearance, soft. Absent: distention, tenderness Incision: Present: normal, dry, intact Uterus: Present: normal, firm - Labs Labs: Abnormal Lab Results - Last 24 Hours (Table) 05/26/19 Range/Units 07:52 RBC 3.71 L (3.80-5.40) m/uL Hgb 10.6 L (11.4-16.0) gm/dL Hct 33.3 L (34.0-46.0) % RDW 15.9 H (11.5-15.5) %
[2019-05-26] MEDS: ACETAMINOPHEN TAB 325 MG TAB PO PRN ×3 (11:13→23:42)
[2019-05-26] MEDS: IBUPROFEN 600 MG TAB PO PRN ×2 (14:20→20:06)
[2019-05-26] MEDS: LACTATED RINGERS 1,000 ML IV SCH (20:07)
[2019-05-26 23:58] VITALS: PULSE 73
[2019-05-27] MEDS: IBUPROFEN 600 MG TAB PO PRN ×2 (02:15→14:23)
--- NOTE | 2019-05-27 08:37 | P.DS ---
Providers Date of admission: 05/25/19 05:44 Expected date of discharge: 05/27/19 Attending physician: Ken Rose Primary care physician: Stated None Hospital Course: Karla is doing very well post op day 2. She is involuting, voiding and tolerating her diet. She voices no complaint. Vital signs are stable and afebrile. Heart regular, lungs clear, extremities without pain. Abdomen soft incisions clean dry and intact and she does have bowel sounds. Assessment postop day 2. Plan discharged home follow me in 1 week. Prescription for [place] and Motrin provided and all other questions are answered for her prior to discharge. Discharge instructions were thoroughly reviewed. Patient Condition at Discharge: Good Plan - Discharge Summary Discharge Rx Participant: Yes New Discharge Prescriptions: New Ibuprofen [Motrin] 600 mg PO Q6HR PRN #30 tab PRN Reason: Pain HYDROcodone/APAP 5-325MG [[place] 5-325] 1 tab PO Q4HR PRN #30 tab PRN Reason: Pain No Action Zxz-Krwz-Xooyb Acid [-U Capsule (formulary)] 1 cap PO DAILY Discharge Medication List Jle-Josq-Qbsdz Acid [-U Capsule (formulary)] 1 cap PO DAILY 01/26/19 [History] HYDROcodone/APAP 5-325MG [[place] 5-325] 1 tab PO Q4HR PRN #30 tab 05/27/19 [Rx] Ibuprofen [Motrin] 600 mg PO Q6HR PRN #30 tab 05/27/19 [Rx] Follow up Appointment(s)/Referral(s): Ken Rose DO [Doctor of Osteopathic Medicine] - 1 Week Activity/Diet/Wound Care/Special Instructions: No heavy lifting, limit stairs and driving, and pelvic rest. If any high temperatures, heavy bleeding, or severe pain call my office Discharge Disposition: HOME SELF-CARE
[2019-05-27] MEDS: SENNOSIDES-DOCUSATE SODIUM 1 EACH TAB PO SCH (09:10)
[2019-05-27 11:03] VITALS: BP 142/81; RESP 18; TEMP 97.7
== END 2019-05-27 14:51 | disposition home or self-care (01) | DRG 785 ==
LOC: 4FBP 05:44
PROVIDERS: ADMIT Obstetrics & Gynecology; ATTEND Obstetrics & Gynecology
PROC: 0UB60ZZ Excision of Left Fallopian Tube, Open Approach (ICD-10-PCS; 2019-05-25)
PROC: 10D00Z1 Extraction of Products of Conception, Low, Open Approach (ICD-10-PCS; principal; 2019-05-25 07:54)
DX: O34.211 Maternal care for low transverse scar from previous cesarean delivery (principal); O69.81X0 Labor and delivery complicated by cord around neck, without compression, not applicable or unspecified; O99.52 Diseases of the respiratory system complicating childbirth; J45.909 Unspecified asthma, uncomplicated; N85.8 Other specified noninflammatory disorders of uterus; Z37.0 Single live birth; Z30.2 Encounter for sterilization; Z3A.39 39 weeks gestation of pregnancy; Z79.899 Other long term (current) drug therapy
CPT/HCPCS: 85025; 86850; 86900; 86901; 88302

== ENCOUNTER → 2020-11-09 | Outpatient (CLI) | payer BC ==
[2020-11-09 16:02] LABS: T4, Free (Free Thyroxine) 0.92 ng/dL (0.78-2.19)
--- NOTE | 2020-11-09 16:43 | US ---
EXAMINATION TYPE: US transvaginal DATE OF EXAM: 11/09/2020 COMPARISON: NONE CLINICAL HISTORY: 29-year-old female Pain abnormal menses TECHNIQUE: Transvaginal (TV FINDINGS: EXAM MEASUREMENTS: Uterus: 6.9 x 4.0 x 4.5 cm Endometrial Stripe: .9 cm Right Ovary: 2.8 x 1.4 x 1.5 cm Left Ovary: 2.8 x 1.8 x 2.8 cm 1. Uterus: Retroverted and otherwise wnl 2. Endometrium: wnl 3. Right Ovary: wnl 4. Left Ovary: wnl. There is a thick-walled 1.4 cm corpus luteum within. 5. Bilateral Adnexa: wnl 6. Posterior cul-de-sac: wnl IMPRESSION: Retroverted uterus. 1.4 cm thick-walled corpus luteum in the left ovary. No specific abnormality seen .
[2020-11-10 01:34] LABS: Luteinizing Hormone 5.4 mIU/mL; Prolactin 6.7 ng/mL (2.8-29.2)
[2020-11-10 01:35] LABS: Estradiol 130.6 pg/mL; Follicle Stimulating Hormone 3.9 mIU/mL
== END | disposition home or self-care (01) ==
LOC: RADUSWWP 14:46
PROVIDERS: ATTEND Obstetrics & Gynecology
DX: N85.4 Malposition of uterus (principal); R93.89 Abnormal findings on diagnostic imaging of other specified body structures; N93.8 Other specified abnormal uterine and vaginal bleeding
CPT/HCPCS: 76830; 82670; 83001; 83002; 84146; 84439; 84443; 84479

== ENCOUNTER → 2023-02-13 | Outpatient (CLI) | payer BC ==
--- NOTE | 2023-02-13 12:36 | MR ---
MRI CERVICAL SPINE: CLINICAL HISTORY: Headaches with neck pain TECHNIQUE: Multiplanar, multisequence imaging of the cervical spine is performed without and with IV contrast, 6 cc of gadolinium was given intravenously. COMPARISON: None. FINDINGS: Coronal images show slight levoconvex scoliosis centered in the upper thoracic spine Sagitt al images of the cervical spine show the craniocervical junction to appear within normal limits. The cervical and upper thoracic spinal cord is normal in course, caliber, and signal. Vertebral alignme nt is satisfactory on sagittal images. The vertebral body and intravertebral disk heights are normal . The bone marrow signal intensity is within normal limits. No abnormal postcontrast enhancement is seen. Axial images show C2-C3 through C4-C5 level to appear within normal limits. At C5-C6 level there is tiny disc herniation minimally effaces the anterior thecal sac sagittal image 8 less well seen on axial images. Axial images at C6-C7 and C7-T1 levels appear within normal limits IMPRESSION: Scoliotic curvature with Tiny disc herniation C5-C6 level. No abnormal enhancement.
== END | disposition home or self-care (01) ==
LOC: RADMRIMAIN 11:26
PROVIDERS: ATTEND Psychiatry & Neurology Neurology
DX: M50.222 Other cervical disc displacement at C5-C6 level (principal); M41.82 Other forms of scoliosis, cervical region
CPT/HCPCS: 72156; A9585